=== PATIENT | female | born 1990 | race Caucasian/White ===

== ENCOUNTER 2024-10-04 16:41 | Emergency (ER) | payer MEDICAID, SELFPAY ==
[2024-10-04 16:43] VITALS: BP 146/79; PULSE 102; RESP 18; TEMP 36.9; O2SAT 97
[2024-10-04 16:45] VITALS: BMI 24.5
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
== END 2024-10-04 17:10 ==
LOC: SERX 17:09
PROVIDERS: Emergency Provider Family Medicine
DX: Z02.89 Encounter for other administrative examinations (principal); F41.9 Anxiety disorder, unspecified; R07.9 Chest pain, unspecified
CPT/HCPCS: 99281